=== PATIENT | female | born 1940 | race Caucasian/White ===

== ENCOUNTER → 2016-10-29 | Outpatient (CLI) | payer MEDICARE, OTHER ==
[~2016-10-29] MED LIST: ARIMIDEX DPS1 MG PO; ASA CHILDREN'S81 MG PO; CALCIUM WITH V1 EAC1 PO; CULTURELLE1 CAP PO; DESYREL DPS100 MG PO; KEFLEX-DPS500 MG PO; LOPRESSOR50 MG PO; MAALOX DPS30 ML PO; MAXZIDE-25 DPS1 TAB PO; MULTI VITAMIN1 EACH PO; PRILOSEC DPS20 MG PO; SURFAK240 MG PO; SYNTHROID112 MCG PO; TYLENOL DPS325 MG PO; TYLENOL-DPS650 MG PO; ZANTAC DPS150 MG PO
== END | disposition home or self-care (01) ==
LOC: RAD.S 12:51
DX: R06.02 Shortness of breath (principal); I10 Essential (primary) hypertension; C50.919 Malignant neoplasm of unspecified site of unspecified female breast; D64.9 Anemia, unspecified; Z17.0 Estrogen receptor positive status [ER+]